=== PATIENT | male | born 1980 | race Caucasian/White ===

== ENCOUNTER 2020-02-25 07:19 | Emergency (ER) | payer OTHER ==
[2020-02-25] MEDS ORDERED: Morphine 4 MG/ML VIAL (1 ml) IV ONE (07:46)
[2020-02-25 08:34] LABS: ABS Lymphocytes 0.9 10^3/ul (1.0-4.8); ABS Monocytes 0.4 10^3/ul (0-0.8); Eosinophil % 0.2 %; Hematocrit 43 % (42-52); Hemoglobin 14.5 g/dL (14.0-18.0); Lymphocyte % 13.6 %; Mean Corpuscular HGB Conc 34 g/dL (31-36); Mean Corpuscular Hemoglobin 32 pg (27-31); Mean Corpuscular Volume 94 fL (80-94); Mean Platelet Volume 9.1 fL (7.4-10.4); Platelet Count 169 10^3/uL (150-450); Red Blood Count 4.59 10^6 /uL (4.18-5.48); Red Cell Distribution Width 14 % (10-15); White Blood Count 6.9 10^3/uL (3.5-10.8)
[2020-02-25 08:38] LABS: Urine Appearance Turbid; Urine Color Red; Urine Specific Gravity 1.022 (1.010-1.030)
[2020-02-25 08:51] LABS: ALT 22 U/L (7-52); AST 33 U/L (13-39); Albumin 4.3 g/dL (3.2-5.2); Albumin/Globulin Ratio 1.8 (1-3); Alkaline Phosphatase 39 U/L (34-104); Anion Gap 6 mmol/L (2-11); BUN/Creatinine Ratio 18.5 (8-20); Blood Urea Nitrogen 17 mg/dL (6-24); C Reactive Protein < 1.00 mg/L (<8.01); CO2 Carbon Dioxide 27 mmol/L (22-32); Calcium 8.9 mg/dL (8.6-10.3); Chloride 100 mmol/L (101-111); EGFR Non-African American 92.6 (>60); Globulin 2.4 g/dL (2-4); Glucose 123 mg/dL (70-100); Potassium 4.1 mmol/L (3.5-5.0); Sodium 133 mmol/L (135-145); Total Protein 6.7 g/dL (6.4-8.9)
[2020-02-25 09:08] LABS: Urine Bacteria 1+ (Absent); Urine Red Blood Cell 3+(>10/hpf) (Absent); Urine Squamous Epithelial Cell Present (Absent); Urine White Blood Cell 2+(11-20/hpf) (Absent)
[2020-02-25] MEDS ORDERED: Iohexol 300 (CONTRAST) 10 ML SDV IV ONE (09:55)
[2020-02-25 10:28] VITALS: BP 152/94
== END 2020-02-25 11:16 | disposition short-term general hospital (02) ==
LOC: ED 07:19